=== PATIENT | male | born 1990 | race Caucasian/White ===

== ENCOUNTER 2024-04-10 14:34 | Emergency (ER) | payer BC, SELFPAY ==
[2024-04-10 14:46] VITALS: BP 151/94; PULSE 77; RESP 16; TEMP 36.9; O2SAT 100
--- NOTE | 2024-04-10 14:47 | ED.EAR ---
HPI - Ear Problem General Chief complaint: Ear Stated complaint: EARACHE Time Seen by Provider: 04/10/24 14:47 Source: patient and old records reviewed Mode of arrival: ambulatory Limitations: no limitations History of Present Illness HPI Narrative: 34 year old male who presents to [facility] care with complaints of bilateral ear pain with left > than right for the past 4 days with some decreased hearing noted.. Patient reports that he has had sinus congestion and drainage and cough for about one week. Patient reports history of allergies and also ear infections with 4 sets of ear tubes when he was growing up. Patient reports that he takes daily Neda and also Nasacort nasal spray daily for allergies. Patient reports that he ahs been taking DayQuil and NyQuil for his present symptoms also. MD Complaint: ear pain and other (sinus congesiont and cough for one week also) Location: bilateral Duration: constant Severity: moderate Associated symptoms ear: decreased hearing and other (pain) Treatment prior to arrival: other (Neda, Nasacort, DayQuil and NyQuil) Related Data Allergies Allergy/AdvReac Type Severity Reaction Status Date / Time No Known Allergies Allergy Verified 04/10/24 14:55 Review of Systems Review of Systems: CONSTITUTIONAL: Denies malaise, chills, sweats, or fever. EYES: Denies visual changes, redness, or discharge. ENT: Reports rhinorrhea, congestion, sinus pain,bilateral otalgia and no sore throat. CARDIOVASCULAR: Denies chest pain, palpitations, or edema. RESPIRATORY: Reports cough.? Denies dyspnea. GASTROINTESTINAL: Denies abdominal pain, nausea, vomiting, diarrhea SKIN: Denies rash or itching. MUSCULOSKELETAL: Denies myalgia. NEUROLOGIC: Denies headache. All systems reviewed & are unremarkable except as noted in HPI and below PMFSH Past Medical History Medical History (Updated 04/11/24 @ 22:54 by Yahaira Ling NP) Ear infection Environmental allergies Surgical History Surgical History (Updated 04/11/24 @ 22:54 by Yahaira Ling NP) History of placement of ear tubes x4 Social History Social History (Updated 04/11/24 @ 22:55 by Yahaira Ling NP) Smoking status: Never smoker Alcohol intake: current Alcohol use details: social Substance use type: does not use Living arrangements: with family Additional occupation/education comments: [employer] Gender identity (if verbalized by the patient): Male Comments At time of signature, agree with nursing past medical, surgical, social and family history. There is no relevant family history pertinent to the presenting complaint Exam Narrative: GENERAL: Well-appearing, well-nourished, and in no acute distress. HEAD: Normocephalic EYES: PERRLA, conjunctivae clear ENT: Nares clear, turbinates edematous and erythematous, clear discharge. Mucous membranes moist.Left TM red and bulging, Right TM pearly beltre with dull light reflex bilaterally; no tragal tenderness. Oropharynx erythematous without lesions. Tonsils not enlarged and without exudate, no drooling, no hoarseness, no trismus, uvula midline.post nasal drainage noted. NECK: Supple. No lymphadenopathy CHEST: Clear to auscultation, breath sounds equal. No wheezing, rhonchi, rales, or stridor. No respiratory distress, speaks in full sentences.cough,SAO2 100% on room air HEART: Regular rate and rhythm. No murmur heard. SKIN: Warm, dry, no rash. NEURO: Alert and oriented x3. PSYCH: Normal mood and affect Course Course Emergency Course: Patient is aware of diagnosis, understands and agrees to treatment plan.? Anticipatory guidance given.? Patient agrees to follow-up as directed and is aware of reasons to seek care at the emergency department. Portions of this record may have been created with voice recognition software Level of Care: Express Care Visit Vital Signs Vital signs: Vital Signs Temperature 36.9 C 04/10/24 14:46 Pulse Rate 77 04/10/24 14:46 Respiratory Rate 16 04/10/24 14:46 Blood Pressure 151/94 H 04/10/24 14:46 Pulse Oximetry 100 04/10/24 14:46 Temperature 36.9 C 04/10/24 14:46 Pulse Rate 77 04/10/24 14:46 Respiratory Rate 16 04/10/24 14:46 Blood Pressure 151/94 H 04/10/24 14:46 Pulse Oximetry 100 04/10/24 14:46 Reviewed Medical Decision Making Differential Diagnosis Differential Diagnosis: URI, rhinitis, otitis media, otalgia, viral infection, cough Medical Records Medical records reviewed: Yes I reviewed the external patient's medical records. Vital Signs Vital Signs: Vital Signs Temperature 36.9 C 04/10/24 14:46 Pulse Rate 77 04/10/24 14:46 Respiratory Rate 16 04/10/24 14:46 Blood Pressure 151/94 H 04/10/24 14:46 Pulse Oximetry 100 04/10/24 14:46 Temperature 36.9 C 04/10/24 14:46 Pulse Rate 77 04/10/24 14:46 Respiratory Rate 16 04/10/24 14:46 Blood Pressure 151/94 H 04/10/24 14:46 Pulse Oximetry 100 04/10/24 14:46 reviewed Critical Care Time Critical Care Time Critical Care Time: No Discharge Plan Discharge Clinical Impression: Acute left otitis media Patient Disposition: Home, Self-Care Condition: Stable Instructions: Antibiotic Form, Ear Infection (GEN) Additional Instructions: Increase fluids especially juices and water [id number] cough and cold medicine of your choice for your symptomsl Continue your Neda daily and may include Coricidin brand decongestant Continue nasal spray daily heat to the face 20-30 minutes 4-6 times a day for pain Salt water gargles, throat lozenges or throat sprays as desired Antibiotic as directed--finished the medication If your symptoms persist, change or worsen significantly before you can contact your personal physician then please, without delay, go to the emergency department for further evaluation. Follow-up with PCP in 7-10 days or sooner if needed Follow up with PCP soon in regards to your blood pressure which is elevated above threshold for referral. Blood pressure above 120/80 may indicate pre-hypertension.151/94 Patient Language: Colombian Prescriptions: New amoxicillin-pot clavulanate 875-125 mg tablet 1 tablet PO Q12H Qty: 20 0RF Rx Instructions: take all doses recommend probiotics or eating activia yogurt while on this medication Follow-up/Referrals: Carla,Shahriar Block MD [Primary Care Provider] - Time of Disposition: 14:59 Quality [place] Coma Scale Eyes: Open Verbal: Oriented and Alert Motor: Follows Commands Bertha Coma Total Score: 15
== END 2024-04-10 15:03 | disposition home or self-care (01) ==
PROVIDERS: Emergency Provider Registered Nurse; PCP Family Medicine
DX: H66.93 Otitis media, unspecified, bilateral (principal)
CPT/HCPCS: 99213; G0463

== ENCOUNTER 2024-10-19 09:36 | Emergency (ER) | payer BC, SELFPAY ==
--- NOTE | 2024-10-19 09:42 | ED.UPPEXIN ---
HPI - Extremity Injury (Upper) General Chief Complaint: Extremity Injury, Upper Stated Complaint: INJURED L WRIST Time Seen by Provider: 10/19/24 10:00 Source: patient and RN notes reviewed Mode of arrival: ambulatory Limitations: no limitations History of Present Illness HPI narrative: 34-year-old male presents with concern for left wrist pain. Reports 1 week ago when he was lifting he felt a sting in his wrist insert than it has been painful. He has been taking ibuprofen and putting ice on it. He denies any decreased strength, sensation, range of motion. Reports pain with rotation. MD complaint: injury to: left and wrist Related Data Home Medications ?Medication ?Instructions ?Recorded ?Confirmed ?Last Taken ?Type fexofenadine 180 mg tablet 180 mg PO DAILY 10/19/24 10/19/24 Unknown History (Neda Allergy) Allergies Allergy/AdvReac Type Severity Reaction Status Date / Time No Known Allergies Allergy Verified 10/19/24 09:47 Review of Systems Review of Systems: CONSTITUTIONAL: Denies malaise, chills, sweats, or fever. SKIN: Denies rash or itching, open skin, laceration, abrasion, redness, warmth, swelling. MUSCULOSKELETAL: Reports left wrist pain NEUROLOGIC: Denies numbness, weakness All systems reviewed & are unremarkable except as noted in HPI and below PMFSH Past Medical History Medical History Ear infection Environmental allergies Surgical History Surgical History History of placement of ear tubes x4 Social History Social History Smoking status: Never smoker Alcohol intake: current Alcohol use details: social Substance use type: does not use Living arrangements: with family Additional occupation/education comments: [employer] Gender identity (if verbalized by the patient): Male Comments At time of signature, agree with nursing past medical, surgical, social and family history. There is no relevant family history pertinent to the presenting complaint Exam Narrative: GENERAL: Well-appearing, well-nourished, and in no acute distress. HEAD: Normocephalic, atraumatic. EYES: PERRLA, conjunctivae clear NECK: Supple. CHEST: Speaks in full sentences. No respiratory distress. HEART: Regular rate and rhythm. Normal and equal peripheral pulses. EXTREMITIES: Left wrist, hand, digits have grossly normal strength and sensation, grossly normal range of motion. No edema or ecchymosis. 5/5 strength with digit flexion and extension. Normal sensation with sensitivity to light touch and pain. Ulnar tenderness. No open wounds, no skin tenting, no devitalized tissue or atrophy, no trophic changes, no obvious deformity, alignment normal, nearby joints and structures intact. Distal pulses palpable and equal bilaterally, skin warm, dry, pink. Capillary refill less than 3 seconds. SKIN: Warm, dry, no rash. NEURO: Alert and oriented x3. PSYCH: Normal mood and affect Course Course Emergency Course: Patient is aware of diagnosis, understands and agrees to treatment plan. Anticipatory guidance given. Patient agrees to follow-up as directed and is aware of reasons to seek care at the emergency department. Portions of this record may have been created with voice recognition software Level of Care: Express Care Visit Vital Signs Vital signs: Reviewed. Critical Care Time Critical Care Time Critical Care Time: No Discharge Plan Discharge Clinical Impression: Acute wrist pain Patient Disposition: Home Condition: Stable Instructions: Tendinitis (ED) Additional Instructions: Avoid activities that cause pain until the pain subsides. Ice to the area 20-30 minutes 4-6 times a day Elastic wrap or orthopedic splint as directed for comfort for the next 5-7 days Tylenol for lesser pain Ibuprofen regularly for the next 2-3 days for the inflammation Follow up with your primary care provider if the condition is not improving within 1 week. If the condition worsens with numbness, tingling, decrease sensation with weakness seek treatment in the emergency room immediately. Patient Language: Macedonian Prescriptions: New ibuprofen 800 mg tablet 800 mg PO Q6H PRN (Reason: pain) Qty: 30 0RF No Action fexofenadine [Neda Allergy] 180 mg tablet 180 mg PO DAILY Follow-up/Referrals: Carla,Shahriar Block MD [Primary Care Provider] - Stand Alone Forms: Work/School Release IP Time of Disposition: 10:10
[2024-10-19 09:49] VITALS: BP 141/82; PULSE 90; RESP 16; TEMP 36.6; O2SAT 99
== END 2024-10-19 10:14 | disposition home or self-care (01) ==
PROVIDERS: Emergency Provider Nurse Practitioner; PCP Family Medicine
DX: M25.532 Pain in left wrist (principal); X50.0XXA Overexertion from strenuous movement or load, initial encounter
CPT/HCPCS: 99213; G0463